=== PATIENT | female | born 1950 | race Caucasian/White ===

== ENCOUNTER 2017-11-23 16:52 | Emergency (ER) | payer MEDICARE, OTHER ==
[2017-11-23 17:21] VITALS: BP 100/87
[2017-11-23] MEDS ORDERED: Acetaminophen TAB* 325 MG PO ONE (18:18)
--- NOTE | 2017-11-23 19:15 | RAD ---
INDICATION: Medial knee pain after a fall COMPARISON: None TECHNIQUE: 4 view radiograph of the left knee. FINDINGS: The visualized bones are well-corticated and properly aligned. The joint spaces are properly maintained. There is no radiographic evidence of joint effusion. There is no acute fracture, dislocation or other focal bony abnormality. IMPRESSION: Normal knee radiograph as described above. If the patient's symptoms persist, follow-up imaging is recommended.
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
== END 2017-11-23 19:09 | disposition home or self-care (01) ==
LOC: UCCORT 16:52
DX: S83.92XA Sprain of unspecified site of left knee, initial encounter (principal); Z91.09 Other allergy status, other than to drugs and biological substances; Z87.891 Personal history of nicotine dependence; W03.XXXA Other fall on same level due to collision with another person, initial encounter; Y92.512 Supermarket, store or market as the place of occurrence of the external cause
CPT/HCPCS: 99213; A9270-GY; G0463

== ENCOUNTER 2019-05-21 11:33 | Emergency (ER) | payer MEDICARE, OTHER ==
[2019-05-21 13:00] VITALS: BP 118/71
--- NOTE | 2019-05-21 13:17 | UC ---
Throat Pain/Nasal Robin HPI - HPI Summary HPI Summary: 69 year old female with a sore throat for the past 3 days. She has been ill with URI symptoms for 3 weeks. Moist cough but non-productive. Non-smoker. She states she saw her PCP this past Thursday (5 days ago) and was told no pneumonia (no CXR done). Pt feels worse today with extreme sore throat. - History of Current Complaint Chief Complaint: UCGeneralIllness Stated Complaint: SORE THROAT Time Seen by Provider: 05/21/19 12:53 Hx Obtained From: Patient Hx Last Menstrual Period: N/A ?: No Onset/Duration: Gradual Onset Severity: Mild Pain Intensity: 4 Cough: Nonproductive Associated Signs & Symptoms: Positive: Nasal Discharge - Allergies/Home Medications Allergies/Adverse Reactions: Allergies Allergy/AdvReac Type Severity Reaction Status Date / Time mold Allergy Unknown Headache Verified 05/21/19 12:54 Home Medications: Home Medications Furosemide 20 mg PO DAILY 05/21/19 [History Confirmed 05/21/19] Magnesium Oxide [Magnesium] 250 mg PO DAILY 05/21/19 [History Confirmed 05/21/19 ] PMH/Surg Hx/FS Hx/Imm Hx Previously Healthy: Yes Endocrine History: Diabetes, Thyroid Disease Psychological History: Depression - Surgical History Surgical History: Yes Surgery Procedure, Year, and Place: 08/02 thyroid 2003 for nodules. VARICOSE VEINS. FIBROID-UTERINE - Family History Known Family History: Positive: Hypertension - Social History Occupation: Retired Alcohol Use: Occasionally Substance Use Type: None Smoking Status (MU): Former Smoker When Did the Patient Quit Smoking/Using Tobacco: 45 YRS AGO - Immunization History Most Recent Tetanus Shot: UNKNOWN Review of Systems All Other Systems Reviewed And Are Negative: Yes ENT: Positive: Sore Throat, Ear Ache - Left earache yesterday but that has improved today., Nasal Discharge Respiratory: Positive: Cough. Negative: Shortness Of Breath Cardiovascular: Negative: Chest Pain Is Patient Immunocompromised?: No Physical Exam Triage Information Reviewed: Yes Appearance: Well-Appearing, No Pain Distress, Well-Nourished Vital Signs: Initial Vital Signs Temp 98.3 F 05/21/19 12:54 Pulse 73 05/21/19 12:54 Resp 16 05/21/19 12:54 BP 118/71 05/21/19 12:54 Pulse Ox 100 05/21/19 12:54 Vital Signs Reviewed: Yes Eyes: Positive: Conjunctiva Clear ENT: Positive: Pharynx normal, Nasal congestion - Clear nasal coryza, TMs normal , Uvula midline. Negative: Tonsillar swelling, Tonsillar exudate, Trismus, Muffled voice, Hoarse voice, Sinus tenderness Neck: Positive: Supple, Nontender, No Lymphadenopathy Respiratory: Positive: Lungs clear, Normal breath sounds, No respiratory distress, No accessory muscle use - Pt has a moist cough...sounds productive but she says it's not Cardiovascular: Positive: RRR, No Murmur, Pulses Normal, Brisk Capillary Refill Musculoskeletal Exam: Normal Neurological Exam: Normal Psychological Exam: Normal Skin Exam: Normal Throat Pain/Nasal Course/Dx - Course Course Of Treatment: CXR:FINDINGS: The heart and mediastinum are normal in size and contour. The lungs are grossly clear. There is no evidence of large pleural effusion. Visualized bones are normal for the patient's age. There is no radiographic evidence of free air beneath the diaphragm IMPRESSION: No radiographic evidence of acute cardiopulmonary disease. Rapid strep: negative I'm going to treat because she's been ill for so long and her cough sounds like it's productive. - Differential Dx/Diagnosis Provider Diagnosis: Bronchitis, Pharyngitis Discharge ED - Sign-Out/Discharge Documenting (check all that apply): Patient Departure All imaging exams completed and their final reports reviewed: Yes - Discharge Plan Condition: Fair Disposition: HOME Prescriptions: DOXYcycline CAP(*) [DOXYcycline 100MG CAP(*)] 100 mg PO BID 7 Days #14 cap Patient Education Materials: Acute Bronchitis (ED) Referrals: Elvia Lanza MD [Primary Care Provider] - Additional Instructions: No dairy products, antacids, multivitamins OR your Magnesium Oxide 2 hours before you take the Doxycycline and 2 hours after you take it but be sure and take it with food. Follow up with your doctor after [place] if no improvement. Go to the ER if you develop difficulty breathing or worsening of symptoms - Billing Disposition and Condition Condition: FAIR Disposition: Home
== END 2019-05-21 14:13 | disposition home or self-care (01) ==
LOC: UCCORT 11:33
DX: J40 Bronchitis, not specified as acute or chronic (principal); J02.9 Acute pharyngitis, unspecified; E11.9 Type 2 diabetes mellitus without complications; Z91.09 Other allergy status, other than to drugs and biological substances; Z87.891 Personal history of nicotine dependence
CPT/HCPCS: 71046; 87651; 99212; G0463